=== PATIENT | female | born 1970 | race African-American/Black ===

== ENCOUNTER 2018-09-06 00:16 | Emergency (ER) | payer BC, OTHER ==
[~2018-09-06] VITALS: Ht 157.5 cm; Wt 90.7 kg
--- NOTE | ~2018-09-06 | EKG ---
[address] [address] [place] [address] ELECTROCARDIOGRAM REPORT Name: RODNEY GONZALES [id number] Admission: 09/06/18 Attend Phys: Discharge: 09/06/18 Date of : 68 Report #: [id number] THIS REPORT FOR: //name// 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 : 1970 Requested By: Candace Apodaca Order Number: [id number] MD: Himanshu Goss Measurements Intervals [place] Rate: 88 P: 48 IA: 155 QRS: -30 QRSD: 83 T: 37 QT: 432 QTc: 523 Interpretive Statements Sinus rhythm Left axis deviation Low voltage Abnormal R-wave progression, late transition Nonspecific T wave abnormality Prolonged QT interval Compared to ECG 09/26/2012 14:26:01 No significant change was found Electronically Signed On 09-06-2018 8:38:34 [employer] by Himanshu Goss [email or web address] <ELECTRONICALLY SIGNED> By: Himanshu Goss MD, [facility] 09/06/18 [id number] [id number] [id number] Himanshu Goss MD, [facility] /EPI
[~2018-09-06 00:16] MED LIST: CONCERTA54 M1 PO; FLEXERIL; NORCO 5-325 TA1 EACH PO; ZOFRAN ODT4 MG PO
[2018-09-06 01:06] LABS: ANION GAP 6 mmol/L (7-16); BUN 11 mg/dL (7-18); CALCIUM 9.1 mg/dL (8.5-10.1); CHLORIDE 103 mmol/L (98-107); CO2 32 mmol/L (21-32); CREATININE 0.8 mg/dL (0.6-1.0); GLUCOSE 115 mg/dL (74-106); POTASSIUM 3.1 mmol/L (3.5-5.1); SODIUM 141 mmol/L (136-145)
[2018-09-06 01:14] LABS: ALBUMIN 3.2 g/dL (3.4-5.0); SGOT 22 U/L (15-37); SGPT 29 U/L (30-65); TOTAL BILIRUBIN 0.1 mg/dL (<0.1-1.0); TOTAL PROTEIN 7.3 g/dL (6.4-8.2); TROPONIN-I <0.06 ng/mL (<0.06)
[2018-09-06 03:15] LABS: MAGNESIUM 2.2 mg/dL (1.8-2.4); TROPONIN-I <0.06 ng/mL (<0.06)
[2018-09-06 03:51] VITALS: BP 123/67
== END 2018-09-06 03:52 | disposition home or self-care (01) ==
LOC: ER 00:16
PROVIDERS: Student in an Organized Health Care Education/Training Program
DX: E87.6 Hypokalemia (principal); M19.90 Unspecified osteoarthritis, unspecified site